=== PATIENT | female | born 1945 | race Caucasian/White ===

== ENCOUNTER 2020-06-05 12:55 | Day surgery (SDC) | payer MEDICARE, MEDICAID ==
[~2020-06-05] VITALS: Ht 160 cm; Wt 63.6 kg
[~2020-06-05 12:55] MED LIST: ALBU8.5H8 INH; APIX5TAB PO; ATOR40TA78 PO; BUDE10.22 INH; CHOL10003 PO; DIPH25CA61 PO; FOLI-17 PO; FURO20TA3 PO; HYDR-3237 PO; HYDR-3240 PO; HYDR2TAB29 PO; HYDR50TA99 PO; KETO30VI27 IVPush; LOSA25TA25 PO; MELA3TAB31 PO; METH2.5T PO; METO25TA91 PO; NAPR-856 PO; OMEP-110 PO; OXYB5TAB10 PO; POTA10TA31 PO; SENN1TAB94 PO; SPIR25TA5 PO; TAMS-11 PO; TRAM-47 PO; ZIPR20CA2 PO
[2020-06-05] MEDS ORDERED: CHLORHEXIDINE 15 ML UDC MM STA (13:13)
[2020-06-05 13:29] VITALS: BP_SYST 71; BP_SYST 82; BP_DIAS 45; BP_DIAS 57
[2020-06-05] MEDS ORDERED: LACTATED RINGERS 1,000 ML IV SCH (13:30)
[2020-06-05] MEDS ORDERED: PROPOFOL 50 ML ONE (13:34)
[2020-06-05] MEDS ORDERED: FENTANYL PF 100 MCG/2ML ONE (13:35)
[2020-06-05] MEDS ORDERED: SUCCINYLCHOLINE 20 MG/ML, 10ML ONE (13:51)
[2020-06-05] MEDS ORDERED: PROPOFOL 10 MG/ML, 50ML ONE (13:51)
[2020-06-05] MEDS ORDERED: ROCURONIUM 10 MG/ML,10ML ONE (13:51)
[2020-06-05] MEDS ORDERED: ONDANSETRON 2MG/ML, 2ML ONE (13:51)
[2020-06-05] MEDS ORDERED: PROMETHAZINE 25 MG/ML, 1ML IVPush PRN (14:30)
[2020-06-05] MEDS ORDERED: EPHEDRINE 50 MG/ML, 1ML IVPush PRN (14:30)
[2020-06-05] MEDS ORDERED: FENTANYL PF 100 MCG/2ML IV PRN (14:30)
[2020-06-05] MEDS ORDERED: ONDANSETRON 2MG/ML, 2ML IVPush PRN (14:30)
[2020-06-05] MEDS ORDERED: EPHEDRINE 50 MG/ML, 1ML IM PRN (14:30)
[2020-06-05] MEDS ORDERED: DIAZEPAM 5 MG/ML, 2ML IVPush PRN (14:30)
[2020-06-05] MEDS ORDERED: DIPHENHYDRAMINE 50 MG/ML, 1ML IVPush PRN (14:30)
[2020-06-05] MEDS ORDERED: OMNIPAQUE 350 MG/ML, 50 ML BOTTLE ONE (14:45)
[2020-06-05] MEDS ORDERED: EPHEDRINE 50 MG/ML, 1ML ONE (14:55)
== END 2020-06-05 16:30 | disposition home or self-care (01) ==
LOC: OUT 12:55
PROVIDERS: ATTEND Internal Medicine Geriatric Medicine
DX: Z46.59 Encounter for fitting and adjustment of other gastrointestinal appliance and device (principal); K80.50 Calculus of bile duct without cholangitis or cholecystitis without obstruction; M06.9 Rheumatoid arthritis, unspecified; Z20.828 Contact with and (suspected) exposure to other viral communicable diseases; Z88.8 Allergy status to other drugs, medicaments and biological substances; Z99.81 Dependence on supplemental oxygen
CPT/HCPCS: 43262; 43264; 43275; 74328; 87635; C1769; J0330; J2405; J2704; J3010; Q9967